=== PATIENT | male | born 1990 | race Caucasian/White ===

== ENCOUNTER 2017-11-03 03:51 | Observation (INO) | payer BC, SELFPAY ==
[2017-11-03] VITALS (13 sets, daily range): BP systolic 109–129; BP diastolic 66–78; PULSE 62–92; RESP 15–23; TEMP 36.4–37.5; O2SAT 96–100
--- NOTE | 2017-11-03 04:09 | DI.CT_ITS ---
SYMPTOM/DIAGNOSIS: RT SIDED ABD PAIN ABDOMEN AND PELVIC CT: CT scan of the abdomen and pelvis was performed following the uneventful administration of intravenous contrast material. There are no priors for comparison. The visualized lung bases are clear. The liver, spleen, pancreas, gallbladder, bile ducts and adrenal glands are unremarkable. There is no biliary ductal dilatation. The portal and superior mesenteric veins are patent. The kidneys show normal and symmetric enhancement. There are bilateral renal cysts. The largest is seen in the inferior pole of the left kidney. No ureteral obstruction is seen. The urinary bladder is intact. The reproductive organs are unremarkable. The appendix is distended measuring 1 cm. in diameter with a thickened appendiceal wall. Appendiceal inflammatory changes are seen. The findings are consistent with an acute appendicitis. No abscess or free air is seen. The remainder of the bowel is unremarkable. There is a trace amount of free fluid in the pelvis. Mildly enlarged lymph nodes are seen in the abdomen, likely reactive. No pneumoperitoneum is seen. The thoracic aorta is intact. The bones are intact. IMPRESSION: Findings consistent with acute appendicitis. No abscess or free air.
--- NOTE | 2017-11-03 04:14 | W.ED.GENAD ---
Discharge Plan Disposition Patient Disposition: [facility] INPATIENT Condition: Stable Discharge Details Chief Complaint: Abd Prob Clinical Impression: Acute appendicitis ED Provider: Mook Garcia Home Meds and New Rx's Prescriptions: No Action No Known Home Meds RF: 0 Discharge Data Discharge Physician: Mook Garcia Medical Decision Making 27 yo male who denies any chronic medical problems and no prior abdominal surgeries comes in [facility] cc of right sided abd pain. He states it started around 10am yesterday and continued today, denies fevers or vomit. Has ruq and rlq with the rlq being more tender. Given location of his pain will obtain lab work to eval for hepatitis and pancreatitis and ct to eval for appendicitis and cholecystitis. Has no testicle tenderness or swelling so doubt torsion labs unremarkable, CT confirms acute appendicitis. Spoke with Dr. Niño who will be in to see the patient and likely admit for surgery Differential Diagnosis appendicitis, colitis, hepatitis, pancreatitis HPI General Mode of arrival: ambulatory. Date/Time Provider Initiated Documentation: 11/03/17 04:05. Limitations to Documentation: no limitations. Information obtained by: patient. History of Present Illness 27 year old M presents to the emergency department with the chief complaint of abd pain, described as moderate, with intensity rated at 5. Quality is described as aching, and is localized to the abdomen. Patient reports no radiation. Patient started experiencing this day(s) (1) and it has been constant. No relieving factors improve symptom(s), No exacerbating factors reported . Patient notes no other symptoms.. Patient did receive the following treatments prior to arrival, none Related Data Home Medications Medication Instructions Recorded Confirmed Unknown [No Known Home Meds] 11/03/17 11/03/17 Allergies Allergy/AdvReac Type Severity Reaction Status Date / Time ethinyl estradiol Allergy Mild Itching Unverified 11/03/17 04:07 [From Seasonale contraceptive] levonorgestrel Allergy Mild Itching Unverified 11/03/17 04:07 [From Seasonale contraceptive] General Stated Complaint: Abd Prob LAVELLE: 3 Review of Systems Review of Systems All systems reviewed & are unremarkable except as noted in HPI and below Constitutional Denies chills, Denies fever(s) and Denies weakness Eyes Patient Denies loss of vision ENT Denies change in voice Cardiovascular Denies chest pain and Denies dyspnea Respiratory Denies dyspnea Gastrointestinal Denies vomiting Genitourinary Denies dysuria Musculoskeletal Denies joint swelling Integumentary/Breasts Denies rash Neurologic Denies loss of vision and Denies weakness Psychiatric Denies depression Endocrine Denies cold intolerance and Denies heat intolerance Allergic/Immunologic Reports urticaria [facility] Social History Smoking/Tobacco Use Status: Never Exam Const General: no acute distress Orientation: alert HENMT Head: normal to inspection Ears: external ears normal General nose exam: external nose normal Mouth: moist mucous membranes Eyes General: appearance normal, both eyes and all related structures Neck Neck: normal visual inspection Resp Effort & Inspection: normal respiratory effort and able to speak in complete sentences Cardio Rate: regular rate GI Palpation: soft and tender in the RLQ; with no rebound tenderness and Rovsing's sign negative Skin General skin exam: no rashes or lesions noted Neuro General: alert and oriented x3 Extrem General: normal to inspection Psych Mental Status: mental status grossly normal Course Vital Signs Temperature 36.7 C 11/03/17 03:59 Pulse 92 H 11/03/17 03:59 Respiratory Rate 16 11/03/17 03:59 Blood Pressure 128/78 11/03/17 03:59 Pulse Oximetry 98 11/03/17 03:59 Temperature 36.7 C 11/03/17 03:59 Pulse 92 H 11/03/17 03:59 Respiratory Rate 16 11/03/17 03:59 Blood Pressure 128/78 11/03/17 03:59 Pulse Oximetry 98 11/03/17 03:59
--- NOTE | 2017-11-03 04:17 | ED.GENADUL_ITS ---
Discharge Plan Disposition Patient Disposition: [facility] INPATIENT Condition: Stable Discharge Details Chief Complaint: Abd Prob Clinical Impression: Acute appendicitis ED Provider: Mook Garcia Home Meds and New Rx's Prescriptions: No Action No Known Home Meds RF: 0 Discharge Data Discharge Physician: Mook Garcia Medical Decision Making 27 yo male who denies any chronic medical problems and no prior abdominal surgeries comes in [facility] cc of right sided abd pain. He states it started around 10am yesterday and continued today, denies fevers or vomit. Has ruq and rlq with the rlq being more tender. Given location of his pain will obtain lab work to eval for hepatitis and pancreatitis and ct to eval for appendicitis and cholecystitis. Has no testicle tenderness or swelling so doubt torsion labs unremarkable, CT confirms acute appendicitis. Spoke with Dr. Niño who will be in to see the patient and likely admit for surgery Differential Diagnosis appendicitis, colitis, hepatitis, pancreatitis HPI General Mode of arrival: ambulatory . Date/Time Provider Initiated Documentation: 11/03/17 04:05 . Limitations to Documentation: no limitations . Information obtained by: patient . History of Present Illness 27 year old M presents to the emergency department with the chief complaint of abd pain, described as moderate, with intensity rated at 5. Quality is described as aching, and is localized to the abdomen. Patient reports no radiation. Patient started experiencing this day(s) (1) and it has been constant. No relieving factors improve symptom(s), No exacerbating factors reported . Patient notes no other symptoms.. Patient did receive the following treatments prior to arrival, none Related Data Home Medications Medication Instructions Recorded Confirmed Unknown [No Known Home Meds] 11/03/17 11/03/17 Allergies Allergy/AdvReac Type Severity Reaction Status Date / Time ethinyl estradiol Allergy Mild Itching Unverified 11/03/17 04:07 [From Seasonale contraceptive] levonorgestrel Allergy Mild Itching Unverified 11/03/17 04:07 [From Seasonale contraceptive] General Stated Complaint: Abd Prob LAVELLE: 3 Review of Systems Review of Systems All systems reviewed & are unremarkable except as noted in HPI and below Constitutional Denies chills, Denies fever(s) and Denies weakness Eyes Patient Denies loss of vision ENT Denies change in voice Cardiovascular Denies chest pain and Denies dyspnea Respiratory Denies dyspnea Gastrointestinal Denies vomiting Genitourinary Denies dysuria Musculoskeletal Denies joint swelling Integumentary/Breasts Denies rash Neurologic Denies loss of vision and Denies weakness Psychiatric Denies depression Endocrine Denies cold intolerance and Denies heat intolerance Allergic/Immunologic Reports urticaria [facility] Social History Smoking/Tobacco Use Status: Never Exam Const General: no acute distress Orientation: alert HENMT Head: normal to inspection Ears: external ears normal General nose exam: external nose normal Mouth: moist mucous membranes Eyes General: appearance normal, both eyes and all related structures Neck Neck: normal visual inspection Resp Effort & Inspection: normal respiratory effort and able to speak in complete sentences Cardio Rate: regular rate GI Palpation: soft and tender in the RLQ; with no rebound tenderness and Rovsing's sign negative Skin General skin exam: no rashes or lesions noted Neuro General: alert and oriented x3 Extrem General: normal to inspection Psych Mental Status: mental status grossly normal Course Vital Signs Temperature 36.7 C 11/03/17 03:59 Pulse 92 H 11/03/17 03:59 Respiratory Rate 16 11/03/17 03:59 Blood Pressure 128/78 11/03/17 03:59 Pulse Oximetry 98 11/03/17 03:59 Temperature 36.7 C 11/03/17 03:59 Pulse 92 H 11/03/17 03:59 Respiratory Rate 16 11/03/17 03:59 Blood Pressure 128/78 11/03/17 03:59 Pulse Oximetry 98 11/03/17 03:59
[2017-11-03 04:25] LABS: Abs Immature Grans 0.01 k/cumm (0.0-0.09); Absolute Eosinophil Count 0.08 k/cumm (0.0-0.7); Absolute Lymphocyte Count 1.12 k/cumm (1.2-3.4); Absolute Monocyte Count 0.75 k/cumm (0.11-0.7); Basophils % 0.4; Eosinophils % 0.7; HCT 42.7 % (40.0-50.0); Immature Grans % 0.1; Mean Corp. HGB Concentration 35.1 g/dL (32.0-36.0); Mean Corpuscular Volume 88.2 fL (80-95); Mean Platelet Volume 10.6 fL (8.0-11.0); Monocytes % 6.7; Neutrophils % 82.1; Platelet Count 199 x1000/uL (130-400); RBC 4.84 m/cumm (4.50-6.00); RBC Distribution Width 11.8 % (11.8-14.1); White Blood Cell Count 11.19 k/cumm (4.4-10.8)
[2017-11-03] MEDS: Normal Saline 1,000 ML 1000 ML IV (04:25)
[2017-11-03] MEDS: Ketorolac 15 MG/ML VIAL IVP ×2 (04:25→06:52)
[2017-11-03] MEDS: Normal Saline Flush 10 ML SYR IVP ×3 (04:26→19:02)
[2017-11-03 04:28] LABS: Absolute Basophil Count 0.04 k/cumm (0.0-0.2); Absolute Neutrophil Count 9.19 k/cumm (1.2-6.7)
[2017-11-03 04:38] LABS: ALT 27 U/L (12-78); AST 19 U/L (15-37); Albumin 4.1 g/dL (3.4-5.0); Alkaline Phosphatase 34 U/L (46-116); Anion Gap 9.8 mmol/L (3-11); BUN 11 mg/dL (7-18); CO2 28.2 mmol/L (21.0-32.0); CREATININE 0.77 mg/dL (0.70-1.30); Calcium 8.5 mg/dL (8.5-10.1); Chloride 100 mmol/L (98-107); Glucose 99 mg/dL (70-100); Lipase 88 U/L (73-393); Potassium 3.7 mmol/L (3.5-5.1); Sodium 138 mmol/L (136-145); Total Protein 7.3 g/dL (6.4-8.2)
[2017-11-03] MEDS: Omnipaque 350 MG/ML 100 ML BTL IJ (04:45)
--- NOTE | 2017-11-03 05:43 | DI.VRAD_ITS ---
EXAM: CT Abdomen and Pelvis With Intravenous Contrast CLINICAL HISTORY: 27 years old, male; Pain; right abdominal pain TECHNIQUE: Axial computed tomography images of the abdomen and pelvis with intravenous contrast. Coronal and sagittal reformatted images were created and reviewed. COMPARISON: No relevant prior studies available. FINDINGS: Lung bases: Unremarkable. No mass. No consolidation. ABDOMEN: Liver: Unremarkable. No mass. Gallbladder and bile ducts: Unremarkable. No calcified stones. No ductal dilation. Pancreas: Unremarkable. No mass. No ductal dilation. Spleen: Unremarkable. No splenomegaly. Adrenals: Unremarkable. No mass. Kidneys and ureters: 12 mm left renal cyst. A few hypodensities within the renal cortex bilaterally which are too small to definitively characterize. No hydronephrosis. Stomach and bowel: Unremarkable. No obstruction. No mucosal thickening. PELVIS: Appendix: Fluid-filled, 9-10 mm caliber, dilated appendix with mild periappendiceal stranding. No associated abscess or perforation. Bladder: Unremarkable. No mass. Reproductive: Unremarkable as visualized. ABDOMEN and PELVIS: Intraperitoneal space: Trace free fluid in the pelvis. No free air. Bones/joints: No acute fracture. No dislocation. Soft tissues: Small fat-containing umbilical hernia. Vasculature: Unremarkable. No abdominal aortic aneurysm. Lymph nodes: Unremarkable. No enlarged lymph nodes. IMPRESSION: 1. ACUTE APPENDICITIS: Fluid-filled, 9-10 mm caliber, dilated appendix with mild periappendiceal stranding. No associated abscess or perforation. Trace free fluid in the pelvis. 2. THIS REPORT CONTAINS FINDINGS THAT MAY BE CRITICAL TO PATIENT CARE. The findings were verbally communicated via telephone conference with Mook Garcia at 5:41 AM EDT on 11/03/2017. The findings were acknowledged and understood. Dictated and Authenticated by: Primitivo Rodas MD. Ordering:CARMENCITA QUIROZ MD
[2017-11-03] MEDS: PIPERACILLIN/TAZO 4.5 GM in Normal Saline 100 ML IVPB (06:08)
--- NOTE | 2017-11-03 08:58 | HPE_ITS ---
Date of service: 11/03/17 Time of Service: 08:46 Assessment and Plan (1) Acute appendicitis: Start date: 11/02/17 Start time: 10:00 Current visit: Yes Status: Acute Physical examination, diagnostic imaging and symptoms consistent with acute appendicitis. Recommended surgical intervention to Mr. Ga. I did discuss the procedure with him, and reviewed the risks of the surgery. All his questions were answered to his satisfaction. Consent was obtained to proceed with laparoscopic appendectomy possible open appendectomy. No promises were given or guarantees made. History of Present Illness Chief Complaint: Acute Appendicitis Narrative: 27-year-old male presented to the emergency room with 24 hours of generalized abdominal pain localizing to the right lower quadrant. Subsequently shown to have a CT proven acute appendicitis. Patient complained of general malaise over the last 24 hours to 90 fever, chills, denies any nausea , vomiting, denies anorexia. Review of Systems Review of Systems All systems reviewed & are unremarkable except as noted in HPI and below Constitutional Reports anorexia, Reports body ache(s), Denies chills, Denies fever(s) and Reports malaise Gastrointestinal Reports abdominal pain, Reports bloating, Denies constipation, Denies diarrhea, Denies loose stools, Denies nausea, Denies vomiting and Denies hematemesis PFSH Social History Smoking/Tobacco Use Status: Never Meds Home Medications Medication Instructions Recorded Confirmed Type Unknown [No Known Home Meds] 11/03/17 11/03/17 History Allergies Allergy/AdvReac Type Severity Reaction Status Date / Time No Known Allergies Allergy Unverified 11/03/17 08:47 Exam Const General: cooperative, healthy appearing and no acute distress Nutritional Appearance: average body habitus, well nourished and thin Orientation: alert, awake and oriented x3 HENMT Head: normal to inspection and atraumatic Ears: hearing grossly normal bilaterally Face and sinus: normal facial exam Mouth: oral mucosae normal Eyes General: appearance normal, both eyes and all related structures Sclera: sclerae normal Pupils: PERRL EOM: EOM intact bilaterally Neck Neck: normal visual inspection, trachea midline and supple Chest Chest: normal inspection of the chest Resp Effort & Inspection: normal respiratory effort, able to speak in complete sentences, no audible wheezes and not labored Cardio Rate: regular rate Rhythm: regular rhythm GI Inspection: non-distended Palpation: no guarding, not rigid and tender in the RLQ and Rovsing's sign positive (positive) Back/Spine/Pelvis Back: no CVA tenderness Skin General skin exam: no rashes or lesions noted, turgor normal and scars (RLQ scar from hernia repair) Neuro General: moves all extremities, no focal motor deficits and CN's II-XI intact bilaterally Extrem General: normal capillary refill and no clubbing, cyanosis or edema Psych Appearance: grossly normal and well kempt Affect: normal affect Attitude: cooperative Judgment: judgment good Results Imaging Abdomen CT scan report/results: image reviewed Labs : 11/03/17 04:15 11/03/17 04:15 Laboratory Results - last 24 hr 11/03/17 11/03/17 04:15 04:15 WBC 11.19 H RBC 4.84 Hgb 15.0 Hct 42.7 MCV 88.2 MCH 31.0 MCHC 35.1 RDW 11.8 Plt Count 199 MPV 10.6 Immature Gran % 0.1 Neutrophils % 82.1 Lymphocytes % 10.0 Monocytes % 6.7 Eosinophils % 0.7 Basophils % 0.4 Absolute Neutrophils 9.19 H Absolute Lymphocytes 1.12 L Absolute Monocytes 0.75 H Absolute Eosinophils 0.08 Absolute Basophils 0.04 Sodium 138 Potassium 3.7 Chloride 100 Carbon Dioxide 28.2 Anion Gap 9.8 BUN 11 Creatinine 0.77 Estimated GFR/1.73 m2 >= 60.00 Glucose 99 Calcium 8.5 Total Bilirubin 1.0 AST 19 ALT 27 Alkaline Phosphatase 34 L Total Protein 7.3 Albumin 4.[address] Abdomen and Pelvis With Intravenous Contrast CLINICAL HISTORY: 27 years old, male; Pain; right abdominal pain TECHNIQUE: Axial computed tomography images of the abdomen and pelvis with intravenous contrast. Coronal and sagittal reformatted images were created and reviewed. COMPARISON: No relevant prior studies available. FINDINGS: Lung bases: Unremarkable. No mass. No consolidation. ABDOMEN: Liver: Unremarkable. No mass. Gallbladder and bile ducts: Unremarkable. No calcified stones. No ductal dilation. Pancreas: Unremarkable. No mass. No ductal dilation. Spleen: Unremarkable. No splenomegaly. Adrenals: Unremarkable. No mass. Kidneys and ureters: 12 mm left renal cyst. A few hypodensities within the renal cortex bilaterally which are too small to definitively characterize. No hydronephrosis. Stomach and bowel: Unremarkable. No obstruction. No mucosal thickening. PELVIS: Appendix: Fluid-filled, 9-10 mm caliber, dilated appendix with mild periappendiceal stranding. No associated abscess or perforation. Bladder: Unremarkable. No mass. Reproductive: Unremarkable as visualized. ABDOMEN and PELVIS: Intraperitoneal space: Trace free fluid in the pelvis. No free air. Bones/joints: No acute fracture. No dislocation. Soft tissues: Small fat-containing umbilical hernia. Vasculature: Unremarkable. No abdominal aortic aneurysm. Lymph nodes: Unremarkable. No enlarged lymph nodes. IMPRESSION: 1. ACUTE APPENDICITIS: Fluid-filled, 9-10 mm caliber, dilated appendix with mild periappendiceal stranding. No associated abscess or perforation. Trace free fluid in the pelvis.
[2017-11-03] MEDS: Lactated Ringers 1,000 ML 80 ML IV ×2 (09:34→10:48)
--- NOTE | 2017-11-03 10:25 | APP_PTH ---
PATIENT: ARISTIDES BARAHONA LOC: [id number]#:[id number] AGE/SX: 27/M ROOM: 215 RE11/03/[address]: Jhon Niño DO : 1990 BED: A DIS: 11/04/2017 SPEC #: [id number] RECD: 11/05/17 12:49 STATUS: IRVIN REQ #: [id number] JUANY: 11/03/17 10:[address]: Jhon Niño DEPT: Surgical Specimen RECD BY: Kemi Conner ENTERED: 11/05/17 12:49 SP TYPE: Appendix OTHR DR: No Local Tissues: 1 - APPENDIX NOT INCIDENTAL Procedures: GROSS AND MICRO LEVEL 3 Comments: [id number]
[2017-11-03] MEDS: Lidocaine 1% Pres-Free 5 ML VIAL 15 ML (10:41)
--- NOTE | 2017-11-03 11:03 | W.PM.OP ---
Date of service: 11/03/17 Time of Service: 11:03 Operative Note DATE OF PROCEDURE: 11/03/17 PRE-OP DIAGNOSIS: Acute appendicitis POST-OP DIAGNOSIS: same PROCEDURE: Laparoscopic Appendectomy SURGEON: Jhon Niño SOLDERING MACHINE FEEDER: Debbie Amezcua ANESTHESIA: GETA (Rachelle Lovelace CRNA ASA 2e Mallampati II) and local (1% lidocaine mixed with 0.5% marcaine /epinephrine) ESTIMATED BLOOD LOSS: 3 PATHOLOGY: other (Appendix) COMPLICATIONS: None Patient was transported to: PACU Patient's condition: stable Indications: 27-year-old male presenting to the emergency room with 24 hours of generalized abdominal pain localizing to the right lower quadrant. Subsequently shown to have CT proven acute appendicitis. He was recommended he undergo surgical intervention. Surgery was explained to him, the risks and benefits discussed. All his questions were answered to his satisfaction, and consent was obtained to proceed with laparoscopic appendectomy Findings: The appendix was identified in the right lower quadrant. There is no evidence of perforation noted. The midportion of the appendix is noted to be grossly dilated and injected. The appendix was subsequently removed laparoscopically. Procedure Description: The patient was brought to the preanesthesia staging area. Identification confirmed, consent signed, then brought to the operating room. Positioned on the operating table supine with all bony prominences padded. An appropriate time out was taken reviewing the patient's: identification, procedure, allergies, medications, history, special needs, and fire hazard. Antibiotics 4.5 grams of Zoysn were given prior to the procedure start, and sequential compression devices were placed. An endotracheal tube was placed by the STATIONARY EQUIPMENT MECHANIC, and sedation was titrated for affect. Once adequate sedation was achieved, a nguyen catheter was inserted into the bladder, and the abdomen was prepped with chloraprep in the standard sterile faschion I started the procedure by making a 4 mm linear transverse incision above the umbilicus, blunt dissection was carried down to the linea alba which was grasped by a Gomez clamp. A veress needle was then introduced into the abdomen, and the position checked with a saline drop test. A 5mm trocar was then inserted under directed visualization. The area under the veress and trocar insertion was inspected for injuries, and there were no apparent injuries seen. A second 5 mm trocar was placed in the LLQ at the level of the ASIS, and midclavicular line, with a 12 mm trocar placed two centimeters above the pubic synthese in the midline. The patient was placed in trendelenberg with a left slant to help expose the cecum and appendix.. The cecum was then manipulated to expose the base of the appendix . A window was created in the mesoappendix at the base of the appendix. Using a harmonic scalpel the mesoappendix was divided starting distal to the window working proximal. Once the mesoappendix was divided to free up the appendix. The appendix was from the cecum using an EndoGI stapler. Once divided the appendix was placed into an endocatch specimen bag. It was then removed from the abdomen and passed off for pathology. The abdomen was then irrigated with saline and desufflated. The trocars were removed under direct visualization. The 12 mm trocar fascia was closed using 0 vicryl suture with a figure of eight fascial suture.All skin incision were closed with 4-0 vicryl suture, and local was infiltrated around all incisions. All counts were reported as correct times two. There were no complications during the procedure. The patient was extubated in the OR and brought to the PACU in good condition.
--- NOTE | 2017-11-03 11:06 | ROE_ITS ---
Date of service: 11/03/17 Time of Service: 11:03 Operative Note DATE OF PROCEDURE: 11/03/17 PRE-OP DIAGNOSIS: Acute appendicitis POST-OP DIAGNOSIS: same PROCEDURE: Laparoscopic Appendectomy SURGEON: Jhon Niño WIRE CHIEF: Debbie Amezcua ANESTHESIA: GETA (Rachelle Lovelace CRNA ASA 2e Mallampati II) and local (1% lidocaine mixed with 0.5% marcaine /epinephrine) ESTIMATED BLOOD LOSS: 3 PATHOLOGY: other (Appendix) COMPLICATIONS: None Patient was transported to: PACU Patient's condition: stable Indications: 27-year-old male presenting to the emergency room with 24 hours of generalized abdominal pain localizing to the right lower quadrant. Subsequently shown to have CT proven acute appendicitis. He was recommended he undergo surgical intervention. Surgery was explained to him, the risks and benefits discussed. All his questions were answered to his satisfaction, and consent was obtained to proceed with laparoscopic appendectomy Findings: The appendix was identified in the right lower quadrant. There is no evidence of perforation noted. The midportion of the appendix is noted to be grossly dilated and injected. The appendix was subsequently removed laparoscopically. Procedure Description: The patient was brought to the preanesthesia staging area. Identification confirmed, consent signed, then brought to the operating room. Positioned on the operating table supine with all bony prominences padded. An appropriate time out was taken reviewing the patient's: identification, procedure, allergies , medications, history, special needs, and fire hazard. Antibiotics 4.5 grams of Zoysn were given prior to the procedure start, and sequential compression devices were placed. An endotracheal tube was placed by the ADMISSIONS SUPERVISOR, and sedation was titrated for affect. Once adequate sedation was achieved, a nguyen catheter was inserted into the bladder, and the abdomen was prepped with chloraprep in the standard sterile faschion I started the procedure by making a 4 mm linear transverse incision above the umbilicus, blunt dissection was carried down to the linea alba which was grasped by a Gomez clamp. A veress needle was then introduced into the abdomen , and the position checked with a saline drop test. A 5mm trocar was then inserted under directed visualization. The area under the veress and trocar insertion was inspected for injuries, and there were no apparent injuries seen. A second 5 mm trocar was placed in the LLQ at the level of the ASIS, and midclavicular line, with a 12 mm trocar placed two centimeters above the pubic synthese in the midline. The patient was placed in trendelenberg with a left slant to help expose the cecum and appendix.. The cecum was then manipulated to expose the base of the appendix . A window was created in the mesoappendix at the base of the appendix. Using a harmonic scalpel the mesoappendix was divided starting distal to the window working proximal. Once the mesoappendix was divided to free up the appendix. The appendix was from the cecum using an EndoGI stapler. Once divided the appendix was placed into an endocatch specimen bag. It was then removed from the abdomen and passed off for pathology. The abdomen was then irrigated with saline and desufflated. The trocars were removed under direct visualization. The 12 mm trocar fascia was closed using 0 vicryl suture with a figure of eight fascial suture.All skin incision were closed with 4-0 vicryl suture, and local was infiltrated around all incisions. All counts were reported as correct times two. There were no complications during the procedure. The patient was extubated in the OR and brought to the PACU in good condition.
[2017-11-03] MEDS: Ketorolac 30 MG/ML VIAL IVP ×3 (12:57→23:45)
[2017-11-03] MEDS: ACETAMINOPHEN 1,000 MG/100 ML BTL 400 MG IVPB (19:00)
[2017-11-03] MEDS: Lactated Ringers 1,000 ML 125 ML IV (19:01)
[2017-11-04 00:36] VITALS: BP 119/66; PULSE 73; RESP 19; TEMP 37.2; O2SAT 98
[2017-11-04] MEDS: Lactated Ringers 1,000 ML 80 ML IV (02:17)
[2017-11-04] MEDS: ACETAMINOPHEN 1,000 MG/100 ML BTL 400 MG IVPB ×2 (02:17→09:48)
[2017-11-04 03:35] VITALS: BP 113/55; PULSE 78; RESP 16; TEMP 37.1; O2SAT 97
[2017-11-04] MEDS: Normal Saline Flush 10 ML SYR IVP (05:47)
[2017-11-04] MEDS: Ketorolac 30 MG/ML VIAL IVP (05:47)
[2017-11-04 07:15] VITALS: BP 126/68; PULSE 76; RESP 19; TEMP 36.5; O2SAT 98
--- NOTE | 2017-11-04 09:43 | DSE_ITS ---
Date of service: 11/04/17 Time of Service: 09:38 DS: Diagnosis Discharge Diagnosis (1) Acute appendicitis: Status: Acute Discharge Plan Disposition Patient Disposition: HOME Condition: Stable Discharge Details Chief Complaint: Abd Prob Reason For Visit: ACUTE APPENDICITIS Admit Date/Time: 11/03/17 11:45 Admit Provider: Jhon Niño Attending Provider: Jhon Niño Primary Care Provider: [facility],LOCAL ED Provider: Mook Garcia [facility] Course Hospital Course: Patient underwent laparoscopic appendectomy without complications, please see separate operative report for full details. His postoperative course was fairly unremarkable his diet was advanced as tolerated, pain control was transitioned from IV to p.o. within 24 hours he was up ambulating at baseline, and he was afebrile throughout his course. Same as he was afebrile tolerating a p.o. diet, pain control p.o. pain medications, and ambulating at baseline. Home Meds and New Rx's Prescriptions: New acetaminophen [Tylophen] 500 mg capsule 500 mg PO Q4H PRN (Reason: fever or pain) Qty: 30 RF: 0 ibuprofen 600 mg tablet 600 mg PO QID PRN (Reason: fever or pain) Qty: 30 RF: 0 Discharge Instructions Instructions: Laparoscopic Appendectomy (DC) Additional Instructions: General Surgery Discharge Information Discharge Activities: 1. Continue incentive spirometry 10-15 times~every hour while awake and as tolerated 2. Ambulate at least 3 times a day for 15 minutes and as tolerated 3. Out of bed at least 3 times a day for 2 hours at a time, and as tolerated 4. You can shower, pat wounds dry, do not rub Restrictions: 1. No heavy lifting over 20 pounds for 2 weeks, no strenuous bending or twisting. 2. No swimming, baths, or immersion of wounds in water for 2 weeks. Therapies: 1. Physical Therapy evaluate at treat for []. 2.Home Health care referral for []. If you are having fever, chills, nausea, vomiting, pain not controlled with pain medications, bleeding or drainage from your wounds. Call [phone] or [phone] (after hours). I understand the above instructions and have no questions. _ Signature of Patient or Responsible Adult Escort Date/Time _ Name of Responsible Adult Escort _ Sugnature of Nurse Date/Time Care Plan Goals: Home Stand Alone Forms: Nursing Discharge Form Referrals: funmi de santiago [Other] (Follow up in one week for post surgical check up, Call provider to make appointment) Activity:: see instructions Equipment/Supplies:: No Equipment Needed Discharge Orders Discharge Orders: Discharge Order (Routine); Ordered 11/04/17 Ordered By: Jhon Niño DS: Summary Status at Discharge Functional status at discharge: independent ambulation Overall status at discharge: patient is back to baseline Time Spent with Patient Less than 30 minutes Exam Const General: cooperative, healthy appearing, comfortable and no acute distress Nutritional Appearance: average body habitus and well nourished Orientation: alert, awake and oriented x3 Resp Effort & Inspection: normal respiratory effort, no audible wheezes, not labored and not tachypneic Cardio Rate: regular rate Rhythm: regular rhythm GI Inspection: incision (clean, dry, intact) Palpation: soft, no guarding and tender (over incisions as appropiate) Neuro General: moves all extremities, no focal motor deficits and CN's II-XI intact bilaterally Psych Appearance: grossly normal and well kempt Mental Status: mental status grossly normal Attitude: cooperative Judgment: judgment good DS: Data Vitals/I&O Vitals and I&O: Vital Signs Temperature 35.7 C L 11/04/17 09:00 Temperature Source Tympanic 11/04/17 09:00 Pulse 109 H 11/04/17 09:00 Pulse Rhythm Regular 11/03/17 20:00 Respiratory Rate 20 11/04/17 09:00 Respiratory Effort Non-Labored 11/03/17 20:00 Respiratory Depth Normal 11/03/17 20:00 Respiratory Pattern Normal 11/03/17 20:00 Blood Pressure 127/100 H 11/04/17 09:00 Pulse Oximetry 99 11/04/17 09:00 Respiratory End-tidal CO2 39 11/03/17 11:25 Oxygen Delivery Method Room Air 11/04/17 09:00 Oxygen Flow Rate 0 11/04/17 09:00 Pain Level 2 11/04/17 03:35 Comment 11/03/17 18:45 Intake & Output 11/03/17 11/04/17 11/04/17 18:59 06:59 18:59 Intake Total 2370 / 2370 2608.323 / 2608.323 600 / 600 Output Total 300 / 300 Balance 2070 / 2070 2608.323 / 2608.323 600 / 600 Intake: IV 2130 / 2130 2008.323 / 2008.323 Oral 240 / 240 600 / 600 600 / 600 Output: Urine 300 / 300 Other: Urine Color Yellow Urine Appearance Clear Comment pATIENT VOID X 1 IN TOILET, MISSED HAT + FLATUS Emesis Description None Voiding Methods Toilet Pending studies at discharge: WBC 11.19 k/cumm (4.4-10.8) H 11/03/17 04:15 RBC 4.84 m/cumm (4.50-6.00) 11/03/17 04:15 Hgb 15.0 g/dL (13.5-17.5) 11/03/17 04:15 Hct 42.7 % (40.0-50.0) 11/03/17 04:15 MCV 88.2 fL (80-95) 11/03/17 04:15 MCH 31.0 pg (27.0-33.0) 11/03/17 04:15 MCHC 35.1 g/dL (32.0-36.0) 11/03/17 04:15 RDW 11.8 % (11.8-14.1) 11/03/17 04:15 Plt Count 199 x1000/uL (130-400) 11/03/17 04:15 MPV 10.6 fL (8.0-11.0) 11/03/17 04:15 Immature Gran % 0.1 11/03/17 04:15 Neutrophils % 82.1 11/03/17 04:15 Lymphocytes % 10.0 11/03/17 04:15 Monocytes % 6.7 11/03/17 04:15 Eosinophils % 0.7 11/03/17 04:15 Basophils % 0.4 11/03/17 04:15 Absolute Neutrophils 9.19 k/cumm (1.2-6.7) H 11/03/17 04:15 Absolute Lymphocytes 1.12 k/cumm (1.2-3.4) L 11/03/17 04:15 Absolute Monocytes 0.75 k/cumm (0.11-0.7) H 11/03/17 04:15 Absolute Eosinophils 0.08 k/cumm (0.0-0.7) 11/03/17 04:15 Absolute Basophils 0.04 k/cumm (0.0-0.2) 11/03/17 04:15 Sodium 138 mmol/L (136-145) 11/03/17 04:15 Potassium 3.7 mmol/L (3.5-5.1) 11/03/17 04:15 Chloride 100 mmol/L (98-107) 11/03/17 04:15 Carbon Dioxide 28.2 mmol/L (21.0-32.0) 11/03/17 04:15 Anion Gap 9.8 mmol/L (3-11) 11/03/17 04:15 BUN 11 mg/dL (7-18) 11/03/17 04:15 Creatinine 0.77 mg/dL (0.70-1.30) 11/03/17 04:15 Estimated GFR/1.73 m2 >= 60.00 (mL/min/1.73m2) 11/03/17 04:15 Glucose 99 mg/dL (70-100) 11/03/17 04:15 Calcium 8.5 mg/dL (8.5-10.1) 11/03/17 04:15 Total Bilirubin 1.0 mg/dL (0.2-1.0) 11/03/17 04:15 AST 19 U/L (15-37) 11/03/17 04:15 ALT 27 U/L (12-78) 11/03/17 04:15 Alkaline Phosphatase 34 U/L (46-116) L 11/03/17 04:15 Total Protein 7.3 g/dL (6.4-8.2) 11/03/17 04:15 Albumin 4.1 g/dL (3.4-5.0) 11/03/17 04:15 Lipase 88 U/L (73-393) 11/03/17 04:15
--- NOTE | 2017-11-04 10:52 | PDOC.CMIN ---
- If Service Date Differs Date of service: 11/04/17 Time of Service: 10:52 Care Management Initial Assess REASON FOR HOSPITALIZATION:: Acute Appendicitis PAST MEDICAL HISTORY/PAST SURGICAL HISTORY:: Per ER Note: H1N1, Hernia repair PREVIOUS FUNCTIONAL STATUS/SOCIAL/FAMILY SUPPORTS:: Tarun resides with his Beena. He is independent at baseline, drives, and manages ADL's CURRENT FUNCTIONAL STATUS:: Lying in bed this morning, pleasant throughout interaction. ADVANCE DIRECTIVES:: none on file Has patient been provided with information about the portal?: Yes Did the patient sign up for the portal?: No CODE STATUS:: Full Code INSURANCE COVERAGE / FINANCIAL ISSUES:: [employer] CURRENT HOME/COMMUNITY SERVICES/EQUIPMENT:: Currently Tarun has no services or medical equipment in the community. PRIMARY CARE PHYSICIAN:: No Local POTENTIAL DISCHARGE NEEDS:: F/U appointment with Dr. Niño PATIENT/FAMILY EDUCATION NEEDS:: Review DC instructions, any limitations, and ongoing DC planning discussion. review Ask me three ANTICIPATED BARRIERS TO DISCHARGE:: None identified at this time. TRANSPORTATION:: Via private vehicle with PLAN:: Tarun will return home with no services. He will F/U with PCP and plan of care as prescribed. to transport.
--- NOTE | 2017-11-04 11:04 | PDOC.CMDIS ---
- If Service Date Differs Date of service: 11/04/17 Time of Service: 11:04 LACE Index Scoring Tool - Questions: Length of Stay (in days): 2 Acuity (Admit via E.D.?): Yes E.D. Visits: 1 - Answers: Total Score: 6 Risk of Readmission: Low Risk Care Management Discharge Reason for Hospitalization: Acute Appendicitis Discharge Plan: Home with no services. Tarun will F/U with Dr. Niño and plan of care as prescribed. to transport. Patient/Family Education Needs: Review DC instructions, any limitations, and Ask Me Three
== END 2017-11-04 11:29 | disposition home or self-care (01) ==
LOC: ER 06:40 → SUR 09:28 → MS 11:46
PROVIDERS: Admitting Provider Surgery; Emergency Provider Emergency Medicine; Visit Provider Surgery
PROC: 0DTJ4ZZ Resection of Appendix, Percutaneous Endoscopic Approach (ICD-10-PCS; CPT 44970; principal; 2017-11-03 09:30)
DX: K35.89 Other acute appendicitis (principal)
CPT/HCPCS: 44970; 36415; 80053; 83690; 96361; 96365; 96375; 96376; 99222; 99285; NC; 74177; 85025; 88304; 99284; G0378; J0131; J1100; J1885; J2250; J2405; J2543; J3010; J3490